=== PATIENT | female | born 1965 | race Caucasian/White ===

== ENCOUNTER 2024-12-06 15:36 | Inpatient (IN) | payer MEDICARE ==
[2024-12-06] MEDS ORDERED: NA CHLORIDE 0.9% 1,000 ML ONE (16:12)
[2024-12-06 18:20] LABS: Absolute Basophils 0.1 K/uL (0-0.5); Absolute Lymphocytes (CBC) 1.3 K/uL (0.7-4.9); Absolute Monocytes 1.8 K/uL (0.1-1.3); Absolute Neutrophil 22.2 K/uL (1.8-8.0); Basophils % 0.2 % (0-1.3); Eosinophils % 0.1 % (0-4.4); Hematocrit 39.5 % (36.0-45.0); Lymphocytes % 5.3 % (15.3-44.8); MCHC 32.9 g/dL (32.0-36.0); MCV 97.3 fL (80-100); MPV 6.9 fL (7.6-11.3); Monocytes % 7.2 % (3.3-12.3); Neutrophils % 87.2 % (41.7-73.7); Platelets 428 thou/uL (152-406); RBC Red Blood Cell Count 4.06 M/uL (3.86-4.86); Red Cell Distribution Width 13.7 % (12.1-15.2)
[2024-12-06 18:38] LABS: Albumin 3.9 g/dL (3.4-5.0); Albumin/Globulin Ratio 0.8 (1.1-1.8); Anion Gap 12.9 mEq/L (5.0-15.0); Bilirubin Total 0.6 mg/dL (0.2-1.0); Globulin 4.7 g/dL (2.3-3.5); Potassium 3.9 mEq/L (3.5-5.1); Protein, Total 8.6 g/dL (6.4-8.2)
--- NOTE | 2024-12-06 19:27 | RAD REPORT ---
EXAM: CT brain without contrast HISTORY: fall COMPARISON: None TECHNIQUE: Multiple contiguous axial images were obtained and a CT of the brain without contrast. Sag ittal and coronal reformats were performed. One or more of the following dose reduction techniques were used: Automated exposure control, adjust ment of the mA and/or kV according to patient size, and/or iterative reconstruction. FINDINGS: No evidence of hydrocephalus, intracranial hemorrhage, or extra-axial fluid collection. The brain is normal in morphology. No evidence of midline shift or areas of brain edema. The calvarium is intact. The visualized paranasal sinuses and mastoid air cells are essentially clear . IMPRESSION: No evidence of acute intracranial abnormality.
--- NOTE | 2024-12-06 19:28 | RAD REPORT ---
EXAMINATION: CT ABDOMEN AND PELVIS WITHOUT CONTRAST CLINICAL INDICATION: Constipation;Abd pain TECHNIQUE: CT abdomen and pelvis was performed, without IV contrast, as per department protocol. Axia l, sagittal and coronal reconstructions were obtained. One or more of the following dose reduction techniques were used: Automated exposure control, adjustment of the mA and kV according to the patien t size, and iterative reconstruction. Unless otherwise specified, incidental findings do not require dedicated imaging follow-up. COMPARISON: No prior exam. FINDINGS: The lack of intravenous contrast limits the sensitivity of this exam for evaluation of solid visceral organs, vascular structures, and retroperitoneum. LOWER CHEST: The visualized lung bases are clear. LIVER:Normal in size and contour. No focal lesion. Grossly unremarkable gallbladder. SPLEEN: Normal size. No focal lesion. PANCREAS: No mass, ductal dilation, or domenico-pancreatic fluid. ADRENALS: Normal; no mass. KIDNEYS AND URETERS: Normal size and contour. No hydronephrosis. URINARY BLADDER: Normal contour. GASTROINTESTINAL TRACT: No evidence of bowel obstruction, significant free fluid, free air or abscess . Scattered colonic diverticulosis. APPENDIX: Normal appendix. LYMPH NODES: No lymphadenopathy. MUSCULOSKELETAL: Mild multilevel degenerative spondylosis of the lumbar spine with vacuum disc degene ration. ADDITIONAL FINDINGS: None. IMPRESSION: No acute or concerning abnormalities in the abdomen or pelvis, with evaluation limited by lack of IV contrast.
--- NOTE | 2024-12-06 19:31 | EDPHYS ---
Physician Documentation [facility] Name: Zayra Youssef Age: 59 yrs Sex: Female : 1965 Arrival Date: 12/06/2024 Time: 15:36 Bed 17 Private MD: ED Physician Harrison Li HPI: 12/06 17:34 This 59 yrs old Female presents to ER via EMS with complaints of Constipation. rn 17:34 The patient presents with abdominal pain. Onset: The symptoms/episode began/occurred 2 rn day(s) ago. The symptoms do not radiate. Associated signs and symptoms: Pertinent positives: constipation, Pertinent negatives: blood in stools, fever. The symptoms are described as crampy. Modifying factors: The symptoms are alleviated by nothing, the symptoms are aggravated by nothing. Severity of pain: At its worst the pain was moderate in the emergency department the pain is unchanged. The patient has experienced similar episodes in the past. Patient and spouse report 2 days of abdominal pain, diffuse, associated with constipation followed by diarrhea. Patient with recurrent episodes of constipation. No blood in stool. Patient reports eating barbecue and then has been having nonstop diarrhea since then.. Historical: - Allergies: 15:54 No Known Allergies; kj2 - PMHx: 15:54 Hypertensive disorder; Diabetes mellitus; Depressive disorder; Anxiety; kj2 - Immunization history:: Adult Immunizations unknown. - Infectious Disease History:: Denies. - Social history:: Smoking status: unknown. - Family history:: not pertinent. - Hospitalizations: : No recent hospitalization is reported. ROS: 17:34 Constitutional: Negative for fever, chills, and weight loss, Neck: Negative for injury, rn pain, and swelling, Cardiovascular: Negative for chest pain, palpitations, and edema, Respiratory: Negative for shortness of breath, cough, wheezing, and pleuritic chest pain, Abdomen/GI: Positive for abdominal pain with diarrhea that is nonbloody MS/Extremity: Negative for injury and deformity, Skin: Negative for injury, rash, and discoloration, Neuro: Negative for headache, weakness, numbness, tingling, and seizure, Exam: 17:34 Constitutional: This is a well developed, well nourished patient who is awake, alert, rn and in no acute distress. Cardiovascular: Regular rate and rhythm. No pulse deficits. Respiratory: No increased work of breathing, no retractions or nasal flaring. Abdomen/GI: Soft, right lower quadrant tenderness on exam 23:15 ECG was reviewed by the Attending Physician. [facility] Vital Signs: 15:58 Weight 117.93 kg; Height 5 ft. 3 in. ; kj2 16:00 BP 97 / 54; Pulse 78; Resp 18; Temp 98.2; Pulse Ox 100% on R/A; kj2 18:35 BP 100 / 56; Pulse 80; Resp 18; Pulse Ox 100% ; kj2 20:30 BP 102 / 58; Pulse 73; Resp 18; Pulse Ox 98% on 2 lpm NC; kj2 21:45 BP 104 / 70; Pulse 74; Resp 20; Pulse Ox 100% ; kj2 15:58 Body Mass Index 46.06 (117.93 kg, 160.02 cm) kj2 MDM: 15:43 Medical Screening Exam initiated rn 18:48 ED course: Creatinine elevated, switch CT to without contrast. rn 19:23 Differential diagnosis: bowel obstruction, Cholelithiasis, diverticulitis, gastritis, maurizio gastroesophageal reflux disease, Mesenteric ischemia or infarction, non-specific abd pain, pancreatitis, Peptic Ulcer Disease, Ureterolithiasis, urinary tract infection. Data reviewed: vital signs, nurses notes, lab test result(s), EKG, radiologic studies, CT scan, plain films. Consideration of Admission/Observation Patient was admitted/placed on observation. Escalation of care including admission/observation considered. I considered the following discharge prescriptions or medication management in the emergency department Medications were administered in the Emergency Department. See MAR. Independent interpretation of the following test(s) in the Emergency Department EKG: See my EKG interpretation above. Test considered but Not performed: Ultrasound NO ABD USG. Historians other than the Patient: PT WELL INFORMED. Care significantly affected by the following chronic conditions: Diabetes, Hypertension, Obesity, ANXIETY, DEPRESSION. Counseling: I had a detailed discussion with the patient and/or guardian regarding the historical points, exam findings, and any diagnostic results supporting the discharge/admit diagnosis, lab results, radiology results, the need for further work-up and treatment in the hospital. 12/06 15:44 Order name: CBC with Diff rn 12/06 15:44 Order name: CMP; Complete Time: 18:42 rn 12/06 15:44 Order name: Lipase; Complete Time: 18:42 rn 12/06 18:49 Order name: Blood Culture Adult (2) rn 12/06 18:49 Order name: Lactate w/ 2H reflex if indic. rn 12/06 18:49 Order name: Protime (+inr) rn 12/06 18:49 Order name: Ptt, Activated rn 12/06 20:09 Order name: Urinalysis w/ reflexes kl 12/06 20:13 Order name: Fecal Leukocyte Stain kl 12/06 20:13 Order name: Ova And Parasites kl 12/06 20:13 Order name: Rotavirus Antigen kl 12/06 20:13 Order name: Stool Culture kl 12/06 20:48 Order name: Manual Differential EDMS 12/06 20:52 Order name: Urinalysis w/ reflexes EDMS 12/06 20:52 Order name: CBC with Automated Diff EDMS 12/06 20:52 Order name: CBC with Automated Diff EDMS 12/06 20:52 Order name: Comprehensive Metabolic Panel EDMS 12/06 20:52 Order name: Comprehensive Metabolic Panel EDMS 12/06 23:50 Order name: C.difficile GDH Ag EDMS 12/07 00:01 Order name: Ghost Lactate-NO COLLECT Timer EDMS 12/06 18:49 Order name: Abdomen EDMS 12/06 19:06 Order name: Head Brain Wo Cont; Complete Time: 19:29 EDMS 12/06 18:49 Order name: EKG; Complete Time: 18:50 rn 12/06 15:44 Order name: IV Saline Lock; Complete Time: 18:13 rn 12/06 15:44 Order name: Labs collected and sent; Complete Time: 18:13 rn 12/06 18:49 Order name: Accucheck rn 12/06 18:49 Order name: Cardiac monitoring rn 12/06 18:49 Order name: EKG - Nurse/Tech rn 12/06 18:49 Order name: IV Saline Lock - Large Bore; Complete Time: 21:44 rn 12/06 18:49 Order name: O2 Per Protocol; Complete Time: 21:44 rn 12/06 18:49 Order name: O2 Sat Monitoring rn 12/06 18:49 Order name: Vital Signs; Complete Time: 21:44 rn EC:15 Rate is 80 beats/min. Rhythm is regular. QRS [place] is Normal. RI interval is normal. QRS maurizio interval is normal. QT interval is normal. No Q waves. T waves are Normal. No ST changes noted. Clinical impression: Normal ECG and No evidence of ischemia. Interpreted by me. Reviewed by me. Administered Medications: 18:13 Drug: NS 0.9% IV 1000 ml IV at 1 bolus Per protocol; to be given as a bolus over 60 kj2 minutes Route: IV; Rate: 1 bolus; Site: right antecubital; 19:00 Drug: NS 0.9% IV 1000 ml IV at 1000 ml once; to be given as a bolus over 60 minutes kj2 Route: IV; Rate: 1000 ml; Site: right antecubital; 22:15 Follow up: IV Status: Completed infusion; IV Intake: 1000ml kj2 22:03 Drug: Piperacillin-Tazobactam IVPB 3.375 grams IVPB once over 60 mins; (mix in NS 100 kj2 mL) Route: IVPB; Infused Over: 60 mins; Site: right antecubital; Disposition Summary: 12/06/24 19:30 Hospitalization Ordered Notes: Hospitalization Status: Inpatient Admission maurizio Provider: Jonn Santiago cha Location: Telemetry/MedSurg (Inpatient) maurizio Condition: Fair maurizio Problem: new maurizio Symptoms: have improved maurizio Bed/Room Type: Standard [facility] Room Assignment: 220(12/06/24 21:22) rv1 Diagnosis - Elevated white blood cell count maurizio - Weakness maurizio - Acute kidney failure, unspecified maurizio - Constipation - Diarrhea(12/06/24 19:31) [facility] Forms: - Medication Reconciliation Form maurizio - SBAR form maurizio - Leadership Thank You Letter maurizio Signatures: Dispatcher [employer] Ebenezer Kelly MD MD cha Nieto, Roman, MD MD rn Villegas, Rebecca rv1 Olivia Bueno RN RN kj2 Corrections: (The following items were deleted from the chart) 18:40 17:34 Patient and spouse report 2 days of abdominal pain, diffuse, associated with rn constipation. Patient with recurrent episodes of constipation. No blood in stool.. rn 18:40 17:34 Constitutional: Negative for fever, chills, and weight loss, Neck: Negative for rn injury, pain, and swelling, Cardiovascular: Negative for chest pain, palpitations, and edema, Respiratory: Negative for shortness of breath, cough, wheezing, and pleuritic chest pain, Abdomen/GI: Positive for abdominal pain with constipation MS/Extremity: Negative for injury and deformity, Skin: Negative for injury, rash, and discoloration, Neuro: Negative for headache, weakness, numbness, tingling, and seizure, rn 18:40 17:34 Constitutional: This is a well developed, well nourished patient who is awake, rn alert, and in no acute distress. Cardiovascular: Regular rate and rhythm. No pulse deficits. Respiratory: No increased work of breathing, no retractions or nasal flaring. Abdomen/GI: Soft, no focal tenderness. rn 18:49 15:44 Abdomen Pelvis W Con+CT.RAD.BRZ ordered. EDMS EDMS 19:31 19:30 Constipation maurizio maurizio 21:22 19:30 maurizio rv1
--- NOTE | 2024-12-06 19:31 | ER ---
Nurse's Notes [facility] Name: Zayra Youssef Age: 59 yrs Sex: Female : 1965 Arrival Date: 12/06/2024 Time: 15:36 Bed 17 Private MD: Diagnosis: Constipation-Diarrhea;Elevated white blood cell count;Weakness;Acute kidney failure, unspecified Presentation: 12/06 15:51 Chief complaint: EMS states: constipation x 2 days. Coronavirus screen: Client denies kj2 travel out of the [place] in the last 14 days. At this time, the client does not indicate any symptoms associated with coronavirus-19. Ebola Screen: No symptoms or risks identified at this time. Initial Sepsis Screen: Does the patient meet any 2 criteria? No. Patient's initial sepsis screen is negative. Does the patient have a suspected source of infection? No. Patient's initial sepsis screen is negative. Risk Assessment: Do you want to hurt yourself or someone else? Patient reports no desire to harm self or others. Onset of symptoms was December 06, 2024. 15:51 Method Of Arrival: [facility] kj2 15:51 Acuity: TESHA 3 kj2 Triage Assessment: 15:55 General: Appears in no apparent distress. Behavior is calm, cooperative. Pain: Denies kj2 pain. Neuro: Level of Consciousness is awake, alert, Oriented to person, place, time, situation. Cardiovascular: Patient's skin is warm and dry. Respiratory: Airway Respiratory effort is even, unlabored. GI: No signs and/or symptoms were reported involving the gastrointestinal system. : No signs and/or symptoms were reported regarding the genitourinary system. Historical: - Allergies: 15:54 No Known Allergies; kj2 - PMHx: 15:54 Hypertensive disorder; Diabetes mellitus; Depressive disorder; Anxiety; kj2 - Immunization history:: Adult Immunizations unknown. - Infectious Disease History:: Denies. - Social history:: Smoking status: unknown. - Family history:: not pertinent. - Hospitalizations: : No recent hospitalization is reported. Screenin:57 [facility] ED Fall Risk Assessment (Adult) History of falling in the last 3 months, kj2 including since admission No falls in past 3 months (0 pts) Confusion or Disorientation No (0 pts) Intoxicated or Sedated No (0 pts) Impaired Gait No (0 pts) Mobility Assist Device Used No (0 pt) Altered Elimination No (0 pt) Score/Fall Risk Level 0 - 2 = Low Risk Maintained a safe environment, Hourly rounding (assess needs \T\ fall precautionary measures) done. Abuse screen: Denies threats or abuse. Denies injuries from another. Nutritional screening: No deficits noted. Tuberculosis screening: No symptoms or risk factors identified. Assessment: 15:59 General: see triage assessment. kj2 17:03 Reassessment: patient on bedside commode for BM x 2. RN explained the importance of UV kj2 placement. Patient request to wait until finished and back in bed for IV. 18:12 Reassessment: Patient appears in no apparent distress at this time. Patient and/or kj2 family updated on plan of care and expected duration. Pain level reassessed. Patient is alert, oriented x 3, equal unlabored respirations, skin warm/dry/pink. 18:35 Reassessment: Patient appears in no apparent distress at this time. Patient and/or kj2 family updated on plan of care and expected duration. Pain level reassessed. Patient is alert, oriented x 3, equal unlabored respirations, skin warm/dry/pink. 19:30 Reassessment: Patient appears in no apparent distress at this time. Patient and/or kj2 family updated on plan of care and expected duration. Pain level reassessed. Patient is alert, oriented x 3, equal unlabored respirations, skin warm/dry/pink. 20:30 Reassessment: Patient appears in no apparent distress at this time. Patient and/or kj2 family updated on plan of care and expected duration. Pain level reassessed. Patient is alert, oriented x 3, equal unlabored respirations, skin warm/dry/pink. 21:30 Reassessment: Patient appears in no apparent distress at this time. Patient and/or kj2 family updated on plan of care and expected duration. Pain level reassessed. Patient is alert, oriented x 3, equal unlabored respirations, skin warm/dry/pink. 22:14 Reassessment: Patient appears in no apparent distress at this time. Patient and/or kj2 family updated on plan of care and expected duration. Pain level reassessed. Patient is alert, oriented x 3, equal unlabored respirations, skin warm/dry/pink. 12/07 00:13 Reassessment: Patient appears in no apparent distress at this time. Patient and/or kj2 family updated on plan of care and expected duration. Pain level reassessed. Patient is alert, oriented x 3, equal unlabored respirations, skin warm/dry/pink. Vital Signs: 12/06 15:58 Weight 117.93 kg; Height 5 ft. 3 in. ; kj2 16:00 BP 97 / 54; Pulse 78; Resp 18; Temp 98.2; Pulse Ox 100% on R/A; kj2 18:35 BP 100 / 56; Pulse 80; Resp 18; Pulse Ox 100% ; kj2 20:30 BP 102 / 58; Pulse 73; Resp 18; Pulse Ox 98% on 2 lpm NC; kj2 21:45 BP 104 / 70; Pulse 74; Resp 20; Pulse Ox 100% ; kj2 15:58 Body Mass Index 46.06 (117.93 kg, 160.02 cm) kj2 ED Course: 15:43 Patient arrived in ED. rn 15:43 Harrison Li MD is Attending Physician. rn 15:50 Olivia Bueno RN is Primary Nurse. kj2 15:53 Triage completed. kj2 15:58 Patient has correct armband on for positive identification. Provided Education on: call kj2 light, fall prevention. 15:59 Assisted to bedside commode. kj2 16:00 Assisted to bedside commode. bowel movement. kj2 16:45 Assisted to bedside commode. bowel movement. kj2 17:12 Radiology exam delayed due to lab results not completed at this time. (BUN/Creatinine) sm9 IV insertion attempt and/or patient not having appropriate IV at this time. 18:12 Inserted saline lock: 20 gauge in right antecubital area, using aseptic technique. kj2 Blood collected. Flushed with 10 mL NS. 19:15 Assisted to bedside commode. bowel movement. kj2 19:18 Abdomen In Process Unspecified. EDMS 19:18 Head Brain Wo Cont In Process Unspecified. EDMS 19:29 Jonn Santiago MD is Hospitalizing Provider. [facility] 22:14 Stool Culture Sent. kj2 22:24 Assisted to bedside commode. bowel movement. kj2 23:55 Urinalysis w/ reflexes Sent. kj2 12/07 00:13 No provider procedures requiring assistance completed. Patient admitted, IV remains in kj2 place. 00:14 Patient need for admit. kj2 Administered Medications: 12/06 18:13 Drug: NS 0.9% IV 1000 ml IV at 1 bolus Per protocol; to be given as a bolus over 60 kj2 minutes Route: IV; Rate: 1 bolus; Site: right antecubital; 19:00 Drug: NS 0.9% IV 1000 ml IV at 1000 ml once; to be given as a bolus over 60 minutes kj2 Route: IV; Rate: 1000 ml; Site: right antecubital; 22:15 Follow up: IV Status: Completed infusion; IV Intake: 1000ml kj2 22:03 Drug: Piperacillin-Tazobactam IVPB 3.375 grams IVPB once over 60 mins; (mix in NS 100 kj2 mL) Route: IVPB; Infused Over: 60 mins; Site: right antecubital; Medication: 15:58 VIS not applicable for this client. kj2 Intake: 22:15 IV: 1000ml; Total: 1000ml. kj2 Outcome: 19:30 Decision to Hospitalize by Provider. maurizio 12/07 00:14 Admitted to Med/surg accompanied by tech, via wheelchair, room 220, kj2 Condition: stable Instructed on the need for admit, 00:15 Patient left the ED. kj2 Signatures: Dispatcher [employer] EDEbenezer Bonilla MD MD cha Nieto, Roman, MD MD rn McGilbery, Sarah [facility] Olivia Bueno RN RN kj2 Corrections: (The following items were deleted from the chart) 12/06 17:25 17:13 Radiology exam delayed due to lab results not completed at this time. sm9 (BUN/Creatinine) sm9
[2024-12-06 20:47] LABS: Differential Total Cells Count 100; Lymphocytes 7 % (15-42); Segmented Neutrophils 92 % (40-80)
[2024-12-06] MEDS ORDERED: ONDANSETRON 4 MG/2 ML VIAL IV PRN (20:47)
[2024-12-06 20:48] LABS: Blood Morphology Comment NOT SEEN (NOT SEEN); Platelet Estimate INCR
--- NOTE | 2024-12-06 20:51 | P.HP ---
Certification for Inpatient Patient admitted to: Inpatient With expected LOS: >2 Midnights Practitioner: I am a practitioner with admitting privileges, knowledge of patient current condition, hospital course, and medical plan of care. Services: Services provided to patient in accordance with Admission requirements found in Title 42 Section 412.3 of the Code of Federal Regulations Patient History Date of Service: 12/06/24 Reason for admission: Abdominal Pain History of Present Illness: 59 yrs old Female with past medical history of diabetes, hypertension, hyperlipidemia, depression, anxiety, who was brought to ER with abdominal pain. Abdominal pain is diffuse. Nonradiating., Pain is dull aching associate with alternating constipation and diarrhea. No fever or chills. Denies any melena Denies any dysuria. No fever or chills. No sick contacts. Patient was assessed in the ER and was noted to have acute kidney injury and elevated lactic acid level along with leukocytosis and was admitted for further management Allergies No Known Allergies Allergy (Verified 05/18/24 10:36) Home medications list reviewed: Yes Home Medications: Acetaminophen [Tylenol Extra Strength] 2 tab PO TID 01/17/23 Aripiprazole [Abilify] 2 mg PO DAILY 01/17/23 Tirzepatide [Mounjaro] 2.5 mg SQ EVERY 7TH DAY 01/17/23 Venlafaxine HCl [Effexor XR] 150 mg PO DAILY 01/17/23 - Past Medical/Surgical History Diabetic: No Past Medical History: Reviewed- Non-Contributory -: Depression -: ALTAGRACIA -: DVT -: morbid obese -: RA vs OA Past Surgical History: Reviewed- Non-Contributory - Family History Family History: Reviewed- Non-Contributory - Family History Father Notes: healthy - Social History Smoking Status: Never smoker Alcohol use: Yes CD- Drugs: No Caffeine use: Yes Review of Systems 10-point ROS is otherwise unremarkable Physical Examination - Vital Signs Temperature: 98.2 F Blood Pressure: 142/78 Pulse: 82 Respirations: 18 Pulse Ox (%): 94 - Physical Exam General: Alert, Oriented x3, Cooperative, Obese HEENT: Atraumatic, Normocephalic Neck: Supple Respiratory: Clear to auscultation bilaterally, Normal air movement Cardiovascular: Regular rate/rhythm, Normal S1 S2 Capillary refill: <2 Seconds Gastrointestinal: W/out hepatosplenomegaly, Distended, Tenderness Musculoskeletal: No clubbing Integumentary: No rashes Neurological: Normal speech, Normal strength at 5/5 x4 extr, Cranial nerves 3-12 intact, Normal reflexes 2+ Lymphatics: No axilla or inguinal lymphadenopathy - Studies Laboratory Data (last 24 hrs) 12/06/24 12/06/24 18:05 18:05 WBC 25.50 H Hgb 13.0 Hct 39.5 Plt Count 428 H Sodium 138 Potassium 3.9 BUN 49 H Creatinine 3.32 H Glucose 158 H Total Bilirubin 0.6 AST 17 ALT 20 Alkaline Phosphatase 150 H Lipase 33 Assessment and Plan - Plan Intractable abdominal pain Acute kidney injury Leukocytosis Lactic acidosis Hypertension Arthritis Morbid obesity Plan Nonspecific abdominal pain Started on IV antibiotic CT negative for any acute changes Monitor closely on telemetry Aggressive hydration Monitor CBC in a.m. UA pending Hypertension Antihypertensives titrated Continue home medications and titrate as needed Hyperlipidemia Continue statin SEBASTIAN Monitor renal parameters Electrolytes monitor and replace accordingly Nephrology consulted Morbid obesity Advise lifestyle modification GI/DVT prophylaxis Advanced directive full code Discharge Plan: Home Plan to discharge in: 48 Hours - Advance Directives Does patient have a Living Will: No Does patient have a Durable POA for Healthcare: No - Code Status/Comfort Care Code Status: Full Code Time Spent Managing Pts Care (In Minutes): 48
[2024-12-06] MEDS ORDERED: PIPERACIL/TAZO 3.375 GM VIAL IV ONE (21:49)
[2024-12-06] MEDS ORDERED: NA CHLORIDE 0.9% 100 ML ONE (21:51)
[2024-12-06 21:54] LABS: PT Prothrombin Time 12.8 SECONDS (9.4-12.5); PTT, Activated Partial Thromb 31.4 SECONDS (24.3-36.9); Protime INR 1.22
[2024-12-06 23:50] LABS: C.diff Antigen/Toxin Ag neg : Tox neg (NEG : NEG); CDIFF INTERNAL NEG CONTROL White Background (WHITE BKGD); STOOL CONSISTENCY Liquid/Semi-Solid
[2024-12-07] LABS: Calcium Oxalate Crystals- Ur Few /HPF (None Seen); Renal Epithelial <5 /HPF (None Seen); Specific Gravity 1.021 (1.005-1.030); Sqamous Epithelial <5 /HPF (None Seen); Urine Bacteria >50 /HPF (<20); Urine Bilirubin NEGATIVE (Negative); Urine Blood 1+ (Negative); Urine Clarity Extremely Turbid (Clear); Urine Color Yellow (Yellow); Urine Culture Reflex Order NOT NEEDED; Urine Glucose NEGATIVE (Negative); Urine Ketones NEGATIVE (Negative); Urine Microscopic Reflex YN ORDER UMIC; Urine Mucus Slight /HPF (None Seen); Urine Nitrite NEGATIVE (Negative); Urine Protein 1+ (Negative); Urine Urobilinogen Normal (Normal); Urine WBC <5 /HPF (<5); Urine WBC Clump Rare /HPF (None Seen); Urine Yeast (Budding) Trace /HPF (None Seen)
[2024-12-07 00:38] VITALS: BMI 42.1
[2024-12-07] MEDS: NA CHLORIDE 0.9% 1,000 ML IV SCH (00:51)
[2024-12-07 05:24] LABS: Absolute Basophils 0.1 K/uL (0-0.5); Absolute Lymphocytes (CBC) 1.2 K/uL (0.7-4.9); Absolute Monocytes 2.3 K/uL (0.1-1.3); Absolute Neutrophil 20.5 K/uL (1.8-8.0); Basophils % 0.4 % (0-1.3); Hematocrit 38.9 % (36.0-45.0); Hemoglobin 12.7 g/dL (12.0-15.0); MCH 31.6 pg (27.0-35.0); MCHC 32.7 g/dL (32.0-36.0); MCV 96.5 fL (80-100); Monocytes % 9.4 % (3.3-12.3); Neutrophils % 85.2 % (41.7-73.7); Platelets 430 thou/uL (152-406); RBC Red Blood Cell Count 4.03 M/uL (3.86-4.86); Red Cell Distribution Width 13.7 % (12.1-15.2)
[2024-12-07 05:54] LABS: Albumin 3.4 g/dL (3.4-5.0); Albumin/Globulin Ratio 0.7 (1.1-1.8); Anion Gap 10.8 mEq/L (5.0-15.0); Bilirubin Total 0.7 mg/dL (0.2-1.0); Globulin 4.7 g/dL (2.3-3.5); Potassium 3.8 mEq/L (3.5-5.1); Protein, Total 8.1 g/dL (6.4-8.2)
--- NOTE | 2024-12-07 07:49 | RAD REPORT ---
EXAMINATION: US RENAL ULTRASOUND CLINICAL INDICATION: Kidney Function TECHNIQUE: Real-time ultrasonography of the abdomen was performed. COMPARISON: No prior exam. FINDINGS: RIGHT KIDNEY: Right renal length measurement: 11.0 x 5.6 x 4.7 cm. Normal in echogenicity and size. N o calculus, solid mass or hydronephrosis. LEFT KIDNEY: Left renal length measurement: 9.7 x 5.7 x 4.9 cm. Normal in echogenicity and size. No c alculus, solid mass or hydronephrosis. URINARY BLADDER: Incompletely distended without gross abnormality detected. ADDITIONAL FINDINGS: None. IMPRESSION: Unremarkable renal ultrasound.
[2024-12-07] MEDS: FLU (Fluarix Triv) TS24-25(6MOS UP)/PF 45 MCG/0.5 ML Syringe IM ONE (08:00)
[2024-12-07] MEDS: ACETAMINOPHEN 325 MG TABLET PO PRN (08:44)
[2024-12-07] MEDS: ENOXAPARIN 30 MG/0.3 ML SQ SCH (08:44)
[2024-12-07] MEDS: PIPER TAZO 3.375 GM in NA CHLORIDE 0.9% 100 ML IV SCH (11:43)
--- NOTE | 2024-12-07 14:08 | P.PN ---
Subjective Date of Service: 12/07/24 Chief Complaint: Abdominal Pain Patient reports multiple episodes of diarrhea today. Also reports abdominal pain. Physical Examination - Vital Signs Temperature: 97.3 F Blood Pressure: 111/60 Pulse: 90 Respirations: 17 Pulse Ox (%): 99 - Studies Laboratory Data (last 24 hrs) 12/06/24 12/06/24 18:05 18:05 WBC 25.50 H Hgb 13.0 Hct 39.5 Plt Count 428 H Sodium 138 Potassium 3.9 BUN 49 H Creatinine 3.32 H Glucose 158 H Total Bilirubin 0.6 AST 17 ALT 20 Alkaline Phosphatase 150 H Lipase 33 Assessment And Plan - Plan Physical examination General: Alert and oriented x3, NAD, HEENT: Conjunctiva not pale, anicteric sclera Neck: Supple, no elevated JVD Heart: Heart sounds 1 and 2 normal, regular rhythm, normal rate, no pedal edema Lungs: Clear to auscultation bilaterally, adequate breath sounds bilaterally, no rhonchi or crackles. Abdomen: Soft, obese, nondistended, nontender, normal bowel sounds. Extremities: No tenderness, no deformity Skin: Normal skin turgor, no rash, no nodules or ulcers. Neuro: No focal motor deficit. Normal speech. Psychiatry: Normal mood, no agitation. Diagnosis Intractable abdominal pain Acute kidney injury Leukocytosis Lactic acidosis Hypertension Arthritis Morbid obesity Plan Nonspecific abdominal pain. Associated leukocytosis CT negative for any acute changes Continue IV antibiotic IV hydration Stool for WBC is negative making infectious enterocolitis unlikely. Monitor CBC in a.m. SEBASTIAN Improving with IV hydration Nephrology consulted. Hypertension Hold lisinopril given borderline low blood pressure Morbid obesity Weight loss by diet and exercise advised. DVT prophylaxis: Lovenox Advanced directive: full code
[2024-12-07 16:54] LABS: Hematocrit 36.6 % (36.0-45.0); Hemoglobin 12.5 g/dL (12.0-15.0)
--- NOTE | 2024-12-08 02:39 | CON ---
Date of Consultation: 12/07/2024 Chief Complaint: Acute kidney injury. History Of Present Illness: The patient is a 59-year-old woman with past medical history of diabetes mellitus, hypertension, hyperlipidemia, depression and anxiety. She was brought to the emergency ro om because of abdominal pain. The patient described pain as diffuse, non nonradiating, associated wi th constipation and diarrhea. Denies fever, chills, melena, hematemesis, dysuria, hematuria. Denies sick contact. The patient was assessed in the emergency room, where she was found to have elevated BUN and creatinine, elevated lactic acid along with leukocytosis. She was admitted for acute kidney injury. Nephrology consultation was requested for acute kidney injury. The patient has nonoliguric urine output and she is tolerating IV fluids. Home Medications: Acetaminophen, Abilify, Mounjaro, Effexor. She denies nonsteroidal anti-inflammat ory medication. Past Medical History: Depression, ALTAGRACIA, DVT, morbid obesity, anxiety, rheumatoid arthritis versus ost eoarthritis. Family History: No medical problems. Social History: Denies tobacco, alcohol. Denies drugs. Physical Examination: General: The patient is awake, alert, follows commands. Eyes: Anicteric sclerae. EOMI. Ears, Nose, and Throat: Oral mucosa moist. No pallor. Neck: Supple. No bruits. Lungs: Clear to auscultation bilaterally. Heart: S1, S2. No pericardial friction. Abdomen: Soft, benign, nontender. No rebound. No guarding. Extremities: No edema. Laboratory Data: Sodium 138, potassium 3.9, BUN 49, creatinine 3.37, glucose 158, total bilirubin 0. 6. WBC 25.5, hemoglobin 13, hematocrit 39.5, platelet count 428,000. AST 17, ALT 20, AP 150, lipase 33. Impression And Plan: The patient presented with intractable abdominal pain, acute kidney injury, kiara kocytosis. She was found to have lactic acidosis, hypertension, and she has arthritis and morbid obe sity. The patient was started on IV antibiotics, and workup is pending to rule out bowel obstruction . Patient had a CT scan done and it showed no acute changes. The patient developed acute kidney inj ury. Plan is to rule out rhabdomyolysis, to check a renal ultrasound and rule out obstructive uropat hy. Urinalysis was ordered to evaluate for possible active urinary sediment. Continue to monitor re nal panel and adjust IV fluids. 1. Hypertension. Hold angiotensin receptor radha. Avoid nonsteroidal anti-inflammatory medication . Continue antihypertensive treatment. 2. Leukocytosis sepsis. Continue antibiotics. Awaiting cultures. 3. Acute kidney injury on advanced chronic kidney disease. Monitor renal panel and check renal ultra sound to assess kidney size and echotexture and rule out obstructive uropathy. EB/MODL Voice ID: [id number] Report ID: [id number]
[2024-12-08 05:42] LABS: Absolute Eosinophils 0.1 K/uL (0-0.5); Absolute Lymphocytes (CBC) 2.2 K/uL (0.7-4.9); Absolute Monocytes 2.2 K/uL (0.1-1.3); Absolute Neutrophil 19.1 K/uL (1.8-8.0); Basophils % 0.2 % (0-1.3); Eosinophils % 0.3 % (0-4.4); Hematocrit 35.5 % (36.0-45.0); Hemoglobin 11.9 g/dL (12.0-15.0); Lymphocytes % 9.5 % (15.3-44.8); MCH 32.1 pg (27.0-35.0); MCHC 33.5 g/dL (32.0-36.0); MCV 95.7 fL (80-100); MPV 7.4 fL (7.6-11.3); Monocytes % 9.2 % (3.3-12.3); Neutrophils % 80.8 % (41.7-73.7); Platelets 347 thou/uL (152-406); RBC Red Blood Cell Count 3.71 M/uL (3.86-4.86); Red Cell Distribution Width 13.6 % (12.1-15.2)
[2024-12-08 05:53] LABS: Anion Gap 10.5 mEq/L (5.0-15.0); Potassium 3.5 mEq/L (3.5-5.1)
--- NOTE | 2024-12-08 07:23 | RAD REPORT ---
EXAMINATION: Transvaginal Study Probe CLINICAL INDICATION: Pelvic pain. Vaginal bleeding TECHNIQUE: Real-time ultrasonography of the pelvis was performed transvaginally. Color and spectral D oppler evaluation of the ovaries was performed. COMPARISON: No prior exam. FINDINGS: The uterus measures 8 x 4 x 6 cm. Small nabothian cysts within the cervix. A fibroid is not seen. The endometrial stripe measures 8 x 4 x 6 cm The ovaries not seen secondary to overlying bowel gas. Right and left adnexa unremarkable No significant free fluid IMPRESSION: Mild thickening of the endometrium.. In a postmenopausal possible patient this could represent polyp, hyperplasia or neoplasm
[2024-12-08] MEDS: POTASSIUM CL SA 10 MEQ TAB PO ONE (07:34)
--- NOTE | 2024-12-08 09:39 | P.PN ---
Date of Service: 12/08/24 Subjective: feels some improvement overall compared to yesterday reports bleeding has improved - "thinning out"; reports sees it when urinating and possibly vaginal, none with BMs abdominal pain relieved with passing gas no BM since admission - was having diarrhea prior to admission tolerating liquids without issues ROS: 10 point ROS as noted above, otherwise negative Physical Exam: GEN: Alert, oriented, NAD CV: Regular rate and rhythm, no edema Pulm: Nonlabored respirations on room air, clear bilaterally ABD: soft, moderate lower abdominal tenderness, slightly more on LLQ compared to RLQ, nondistended Neuro: Normal speech, normal affect Problem List: Intractable abdominal pain Hematuria, improving Lactic acidosis Leukocytosis SEBASTIAN Hypertension Hyperlipidemia Intractable abdominal pain Hematuria, improving Lactic acidosis Leukocytosis on admission, presents with diffuse abdominal pain. Denies fever/chills/Dysuria. No Melena. CT abdomen (12/06): no acute findings. transvaginal u/s (12/07): Mild thickening of the Endometrium. done due to concern of vaginal bleeding > hematuria pt reports is post-menopausal, and this is new for her had pelvic floor prolapse and had surgery 12/[address] Orellana. Has not followed up recently. continue empiric zosyn (12/07-) antiemetics, pain control Tolerating diet without issues. Advance as tolerated. Hematuria improving. Abdominal pain less severe 12/08. SEBASTIAN improving secondary to prerenal; improved with IVF continue to monitor renal function renal u/s (12/07): unremarkable continue IV fluids Hypertension Hyperlipidemia confirm home meds, restart as appropriate VTE: hold Lovenox given bleed Code: Full Dispo: Home, ~1-2 days pending pain improves, afebrile > 24 hours, leukocytosis improves Time Spent Managing Pts Care (In Minutes): 55
--- NOTE | 2024-12-08 12:45 | EKG ---
Test Date: 2024-12-06 Test Time: 22:59:48 Cell Operator: PATRIA MEASUREMENT RESULTS: Intervals: Rate: 80 MT: 148 QRSD: 86 QT: 382 QTc: 440 Waterproof: P: 59 MT: 148 QRS: -7 T: 40 INTERPRETIVE STATEMENTS: Normal sinus rhythm Normal ECG No previous ECG available for comparison Electronically Signed On 12-08-24 12:42:08 SIDE SEAM ENVELOPE MACHINE OPERATOR by Goran Allen
[2024-12-09 05:22] LABS: Absolute Eosinophils 0.1 K/uL (0-0.5); Absolute Lymphocytes (CBC) 2.3 K/uL (0.7-4.9); Absolute Monocytes 1.3 K/uL (0.1-1.3); Basophils % 0.2 % (0-1.3); Eosinophils % 0.7 % (0-4.4); Hematocrit 33.8 % (36.0-45.0); Hemoglobin 11.1 g/dL (12.0-15.0); Lymphocytes % 11.5 % (15.3-44.8); MCH 31.6 pg (27.0-35.0); MCHC 32.7 g/dL (32.0-36.0); MCV 96.5 fL (80-100); MPV 7.5 fL (7.6-11.3); Monocytes % 6.7 % (3.3-12.3); Neutrophils % 80.9 % (41.7-73.7); Platelets 338 thou/uL (152-406); Red Cell Distribution Width 13.2 % (12.1-15.2)
[2024-12-09 05:41] LABS: Anion Gap 8.7 mEq/L (5.0-15.0); Potassium 3.7 mEq/L (3.5-5.1)
[2024-12-09] MEDS: VENLAFAXINE HCL XR 75 MG CAP PO SCH (07:43)
[2024-12-09] MEDS: TOPIRAMATE 100 MG TAB PO SCH (07:43)
[2024-12-09] MEDS: HOME MED 1 EA UNK (Aripiprazole [Abilify] 2 MG Tablet) PO SCH (07:48)
[2024-12-09] MEDS ORDERED: ENOXAPARIN 40 MG/0.4 ML SQ SCH (09:00)
--- NOTE | 2024-12-09 09:12 | P.PN ---
Date of Service: 12/09/24 Subjective: now reporting bleeding from her "backside" not vaginal or urine - very minimal yesterday, only when wipes posteriorly - slight tinged on tissue Thinks its coming from her rectum. yesterday reported no bleeding from rectum, no blood with BMs tolerating diet afebrile feels bleeding is slowing down having some mild cramps in lower abdomen ROS: 10 point ROS as noted above, otherwise negative Physical Exam: GEN: Alert, oriented, NAD CV: Regular rate and rhythm, no edema Pulm: Nonlabored respirations on room air, clear bilaterally ABD: soft, mild lower abdominal tenderness, slightly LLQ > RLQ, nondistended Neuro: Normal speech, normal affect Problem List: Intractable abdominal pain Microscopic hematuria Lactic acidosis, resolved Leukocytosis, improving SEBASTIAN, resolved Hypertension Hyperlipidemia Intractable abdominal pain Microscopic hematuria Lactic acidosis, resolved Leukocytosis, improving on admission, presents with diffuse abdominal pain. Denies fever/chills/Dysuria. No Melena. CT abdomen (12/06): no acute findings. transvaginal u/s (12/07): Mild thickening of the Endometrium. done due to concern of vaginal bleeding > hematuria. pt reports is post- menopausal, and this is new for her had pelvic floor prolapse and had surgery 12/[address] Orellana. Has not followed up recently. 12/09 Patient now reporting bleeding from her "backside." Denies Hematuria/Vaginal bleeding. When asked yesterday if she had any recent bloody stool, she stated no continue empiric zosyn (12/07-) antiemetics, pain control Diet as tolerated. unclear etiology of leukocytosis and elevated CRP she reports symptoms much improved, just mild abd cramps occasionally SEBASTIAN, resolved resolved secondary to prerenal; improved with IVF continue to monitor renal function renal u/s (12/07): unremarkable DC IVF (12/09) Hypertension Hyperlipidemia confirm home meds, restart as appropriate VTE: hold Lovenox given bleed Code: Full Dispo: Home, ~1-2 days pending pain improves, afebrile > 24 hours, leukocytosis improves Time Spent Managing Pts Care (In Minutes): 55
[2024-12-09] MEDS: POTASSIUM CL SA 10 MEQ TAB PO ONE (12:06)
--- NOTE | 2024-12-09 16:24 | PN ---
Date of Progress Note: 12/09/2024 Subjective: The patient was admitted with acute kidney injury and GI loss. Patient after hydration, kidney function has been improved, resolved, normalized. Objective: Vital Signs: Blood pressure 105/53, pulse of 80. Chest: Clear to auscultation. Heart: S1, S2. Regular. Abdomen: Soft, nontender. Extremities: No edema. Neurologic: Alert. No focality. Laboratory Data: Hemoglobin 11.2. WBC 19.8, trending down. Sodium 137, potassium 3.7, bicarb 24, B UN 12, creatinine 0.7, calcium 8. Current Medications: The patient is on include Zosyn, Tylenol, Zofran, KCl. Assessment And Plan: 1. Acute kidney injury secondary to prerenal, recovered, resolved. Keep holding IV fluid. 2. Hypokalemia. We will supplement. 3. Urosepsis. Continue current antibiotic. Follow up with Primary. Culture, so far, negative but p ersistent leukocytosis, even though trending down. 4. Hypokalemia. We will supplement. WANDA/EARNEST Voice ID: [id number] Report ID: [id number]
[2024-12-09 20:35] VITALS: O2SAT 96
[2024-12-10 04:36] LABS: Absolute Eosinophils 0.2 K/uL (0-0.5); Absolute Lymphocytes (CBC) 2.5 K/uL (0.7-4.9); Absolute Monocytes 1.2 K/uL (0.1-1.3); Absolute Neutrophil 12.5 K/uL (1.8-8.0); Basophils % 0.3 % (0-1.3); Eosinophils % 1.4 % (0-4.4); Hematocrit 34.7 % (36.0-45.0); Hemoglobin 11.5 g/dL (12.0-15.0); Lymphocytes % 15.3 % (15.3-44.8); MCH 31.9 pg (27.0-35.0); MCHC 33.2 g/dL (32.0-36.0); MCV 96.1 fL (80-100); MPV 7.4 fL (7.6-11.3); Monocytes % 7.2 % (3.3-12.3); Neutrophils % 75.8 % (41.7-73.7); Platelets 365 thou/uL (152-406); RBC Red Blood Cell Count 3.61 M/uL (3.86-4.86); Red Cell Distribution Width 13.2 % (12.1-15.2)
[2024-12-10 05:06] LABS: Albumin 2.5 g/dL (3.4-5.0); Albumin/Globulin Ratio 0.6 (1.1-1.8); Anion Gap 8.9 mEq/L (5.0-15.0); Bilirubin Total 0.4 mg/dL (0.2-1.0); Globulin 4.5 g/dL (2.3-3.5); Potassium 3.9 mEq/L (3.5-5.1)
[2024-12-10 08:37] VITALS: BP 108/72; TEMP 98.3
[2024-12-10] MEDS: POTASSIUM CL SA 10 MEQ TAB PO ONE (09:33)
--- NOTE | 2024-12-10 09:58 | P.DS ---
Admission Date: 12/06/24 Discharge Date: 12/10/24 Disposition: ROUTINE DISCHARGE Discharge Condition: GOOD Reason for Admission: Abdominal Pain Consultations: Nephrology - DR. Chairez, Dr. Hassan-Hannah OBGYN - Dr. Orellana Brief History of Present Illness: 59 yo F, PMH: diabetes, hypertension, hyperlipidemia, depression, anxiety, Patient was brought to ER with abdominal pain. Abdominal pain is diffuse. Nonradiating., Pain is dull aching associate with alternating constipation and diarrhea. No fever or chills. Denies any melena Denies any dysuria. No fever or chills. No sick contacts.Patient was assessed in the ER and was noted to have acute kidney injury and elevated lactic acid level along with leukocytosis and was admitted for further management Hospital Course: Problem List: Intractable abdominal pain Microscopic hematuria Lactic acidosis, resolved Leukocytosis, improving SEBASTIAN, resolved Hypertension Hyperlipidemia Physician discharge instructions: Patient presented with diffuse intractable abdominal pain associated with intermittent constipation/diarrhea. Unclear exact etiology. CT and stool studies were negative. Shortly after admission, she reported bleeding when going to the bathroom. Prior to my assessment she there was documentation/concern for vaginal bleeding and a transvaginal ultrasound was done. Her bleeding improved/resolved and I was unable to visually see where the bleeding was actually coming from. Initialy denied any blood from rectum / with bowel movements, and then 2/ reported she believes it was coming from her "back side" when she wiped had minimal on toilet paper. CT abdomen was negative for any acute findings. Transvaginal ultrasound noted mild thickening on the endometrium, otherwise negative. She was started on empiric zosyn on admission to cover possible bacterial infection and had improvement of her symptoms. Given her elevated leukocytosis and inflammatory markers, advised patient complete 10 day antibiotic course. Patient was feeling better, bleeding resolved, afebrile > 24 hours, leukocytosis improving, and was deemed stable for discharge. JOHN Ramirez was consulted and recommended following up in office for further evaluation/management in next 2-4 weeks. Patient's abdominal pain improved, tolerated diet for >2 days prior to discharge. She was monitored due to the significant elevation of her white blood cells and CRP, which improved as well. On day of discharge, she reported feeling well and wanting to go home. Discussed inflammatory markers are not back to normal, but showing consistent improvement each day, along with her feeling well for >2 days now. Recommended to follow up with PCP within 1 week, to reheck blood work. She was also noted to have an SEBASTIAN on admission with serum creatinine of 3.32. SEBASTIAN secondary to dehydration; quickly improved with IV hydration. Nephrology was consulted and recommending stopping Lisinopril. Renal ultrasound was unremarkable. Creatinine on day of discharge: 0.65 Check blood pressure around the same time each day. Keep daily log of blood pressure readings to take to follow up appointments in case further adjustments of medications are needed. Follow up with Nephrology in 2-4 weeks for further management. Labwork on admission vs discharge Leukocytosis 25.5 (12/06)-> 16.5 CRP 181 (12/09)-> 116 Medications: Stop Lisinopril avoid NSAIDs augmentin x 5 days Follow up: PCP 3-5 days OBGYN 1-2 weeks Nephrology in 2-4 weeks Please call to schedule / confirm appointments Physical Exam: GEN: Alert, oriented, NAD CV: Regular rate and rhythm, no edema Pulm: Nonlabored respirations on room air, clear bilaterally ABD: soft, mild lower abdominal tenderness, slightly LLQ > RLQ, nondistended Neuro: Normal speech, normal affect Vital Signs/Physical Exam: Temp Pulse Resp BP Pulse Ox 98.3 F 80 16 108/72 96 12/10/24 08:00 12/10/24 08:00 12/10/24 08:00 12/10/24 08:00 12/10/24 08:00 Laboratory Data at Discharge: WBC 16.50 thou/uL (4.3-10.9) H 12/10/24 04:00 Hgb 11.5 g/dL (12.0-15.0) L 12/10/24 04:00 Hct 34.7 % (36.0-45.0) L 12/10/24 04:00 Plt Count 365 thou/uL (152-406) 12/10/24 04:00 PT 12.8 SECONDS (9.4-12.5) H 12/06/24 21:25 INR 1.22 12/06/24 21:25 APTT 31.4 SECONDS (24.3-36.9) 12/06/24 21:25 Sodium 137 mEq/L (136-145) 12/10/24 04:00 Potassium 3.9 mEq/L (3.5-5.1) 12/10/24 04:00 BUN 12 mg/dL (7-18) 12/10/24 04:00 Creatinine 0.65 mg/dL (0.55-1.02) 12/10/24 04:00 Glucose 85 mg/dL (74-106) 12/10/24 04:00 Uric Acid Cancelled 12/07/24 Unknown Magnesium 2.0 mg/dL (1.6-2.4) 12/10/24 04:00 Total Bilirubin 0.4 mg/dL (0.2-1.0) 12/10/24 04:00 AST 12 U/L (15-37) L 12/10/24 04:00 ALT 20 U/L (13-56) 12/10/24 04:00 Alkaline Phosphatase 93 U/L (45-117) 12/10/24 04:00 Lipase 33 U/L (13-75) 12/06/24 18:05 Home Medications: Acetaminophen [Tylenol Extra Strength] 2 tab PO PRN PRN 01/17/23 Aripiprazole [Abilify] 2 mg PO DAILY 01/17/23 Venlafaxine HCl [Effexor XR] 150 mg PO DAILY 01/17/23 Alendronate Sodium 35 mg PO EVERY 7TH DAY 12/07/24 Gabapentin 300 mg PO PRN PRN 12/07/24 Metformin HCl [Glucophage*] 500 mg PO BID 12/07/24 Phentermine HCl [Adipex-P] 37.5 mg PO DAILY 12/07/24 Topiramate [Topamax*] 100 mg PO DAILY 12/07/24 Amox/Clavulanate [Augmentin 875-125 Tab] 1 tab PO BID 5 Days #10 tab 12/10/24 New Medications: Amox/Clavulanate [Augmentin 875-125 Tab] 1 tab PO BID 5 Days #10 tab Physician Discharge Instructions: Physician discharge instructions: Patient presented with diffuse intractable abdominal pain associated with intermittent constipation/diarrhea. Unclear exact etiology. CT and stool studies were negative. Shortly after admission, she reported bleeding when going to the bathroom. Prior to my assessment she there was documentation/concern for vaginal bleeding and a transvaginal ultrasound was done. Her bleeding improved/resolved and I was unable to visually see where the bleeding was actually coming from. Initialy denied any blood from rectum / with bowel movements, and then 2/ reported she believes it was coming from her "back side" when she wiped had minimal on toilet paper. CT abdomen was negative for any acute findings. Transvaginal ultrasound noted mild thickening on the endometrium, otherwise negative. She was started on empiric zosyn on admission to cover possible bacterial infection and had improvement of her symptoms. Given her elevated leukocytosis and inflammatory markers, advised patient complete 10 day antibiotic course. Patient was feeling better, bleeding resolved, afebrile > 24 hours, leukocytosis improving, and was deemed stable for discharge. JOHN Ramirez was consulted and recommended following up in office for further evaluation/management in next 2-4 weeks. Patient's abdominal pain improved, tolerated diet for >2 days prior to discharge. She was monitored due to the significant elevation of her white blood cells and CRP, which improved as well. On day of discharge, she reported feeling well and wanting to go home. Discussed inflammatory markers are not back to normal, but showing consistent improvement each day, along with her feeling well for >2 days now. Recommended to follow up with PCP within 1 week, to reheck blood work. She was also noted to have an SEBASTIAN on admission with serum creatinine of 3.32. SEBASTIAN secondary to dehydration; quickly improved with IV hydration. Nephrology was consulted and recommending stopping Lisinopril. Renal ultrasound was unremarkable. Creatinine on day of discharge: 0.65 Check blood pressure around the same time each day. Keep daily log of blood pressure readings to take to follow up appointments in case further adjustments of medications are needed. Follow up with Nephrology in 2-4 weeks for further management. Labwork on admission vs discharge Leukocytosis 25.5 (2)-> 16.5 CRP 181 (12/09)-> 116 Medications: Stop Lisinopril avoid NSAIDs augmentin x 5 days Follow up: PCP 3-5 days OBGYN 1-2 weeks Nephrology in 2-4 weeks Please call to schedule / confirm appointments Followup: Gina Chairez MD [ACTIVE - CAN ADMIT] - 1-2 Weeks Kylie Jimenez MD [Primary Care Provider] - 1-2 Weeks Time spent managing pt's care (in minutes): 45
[2024-12-10] MEDS: AMOX/K CLAV 875 MG TAB PO ONE (10:12)
--- NOTE | 2024-12-10 12:40 | PN ---
Date of Progress Note: 12/10/2024 Subjective: The patient was admitted to the hospital with acute kidney injury and leukocytosis with severe urosepsis. The patient after hydration kidney function normalized. Objective: Vital Signs: Blood pressure 108/72, pulse of 80, afebrile. Chest: Clear to auscultation. Heart: S1, S2. Regular. Abdomen: Soft, nontender. Extremities: No edema. Neurologic: Alert. No focality. Laboratory Data: WBC 16.5, hemoglobin 11.5, sodium 137, potassium 3.9, bicarb 24, BUN 12, creatinine 0.6, calcium 8.2. Current Medications: The patient is on include amoxicillin, Zosyn, Tylenol, venlafaxine, Zofran, KCl . Assessment And Plan: 1. Acute kidney injury secondary to prerenal, recovered, resolved. 2. Hypokalemia, status post supplement, resolved. 3. Urosepsis. Leukocytosis, improving. Continue current antibiotic. Follow up with the Primary. The patient cleared from the Renal standpoint for discharge planning. DANNIE Voice ID: [id number] Report ID: [id number]
--- NOTE | 2024-12-14 16:58 | P.CNS ---
Date of Consult: 12/08/24 Requesting Physician: Kaushik Li Chief Complaint: Abdominal Pain History of Present Illness: Presented for abdominal pain Pt reporting bleeding, unsure if vaginal or rectal Imaging done shows slightly thickened endo lining endo stripe 8mm on TVUS, verbal from Sen Pagan MD requesting TVUS be amended to reflect this information, initially read Aron Quintana MD Allergies No Known Allergies Allergy (Verified 05/18/24 10:36) Home Medications: Acetaminophen [Tylenol Extra Strength] 2 tab PO PRN PRN 01/17/23 Aripiprazole [Abilify] 2 mg PO DAILY 01/17/23 Venlafaxine HCl [Effexor XR] 150 mg PO DAILY 01/17/23 Alendronate Sodium 35 mg PO EVERY 7TH DAY 12/07/24 Gabapentin 300 mg PO PRN PRN 12/07/24 Metformin HCl [Glucophage*] 500 mg PO BID 12/07/24 Phentermine HCl [Adipex-P] 37.5 mg PO DAILY 12/07/24 Topiramate [Topamax*] 100 mg PO DAILY 12/07/24 Amox/Clavulanate [Augmentin 875-125 Tab] 1 tab PO BID 5 Days #10 tab 12/10/24 - Past Medical/Surgical History Diabetic: No -: Depression -: ALTAGRACIA -: DVT -: morbid obese -: RA vs OA - Family History Father Notes: healthy - Social History Smoking Status: Unknown if ever smoked Alcohol use: Yes CD- Drugs: No Caffeine use: Yes Place of Residence: Home Physical Examination Temp Pulse Resp BP Pulse Ox 98.3 F 80 16 108/72 96 12/10/24 08:00 12/10/24 08:00 12/10/24 08:00 12/10/24 08:00 12/10/24 08:00 General: Alert, Oriented x3 HEENT: Atraumatic Respiratory: Normal air movement Gastrointestinal: Tenderness - Problems (1) Postmenopausal bleeding Status: Acute Conclusions/Impression: discussed w/pt need to eval lining of 8 mm schedule hysto d/c in office once discharge risks to include bleeding, infection, uterine perforation bring rail car driver Understands to schedule in office eval and f/u after discharge
== END 2024-12-10 11:38 | disposition home or self-care (01) | DRG 683 ==
LOC: ER 15:36 → ERHOLD 20:47 → 2ND 12-07 00:09
PROVIDERS: ADMIT Family Medicine; ATTEND Hospitalist
DX: N17.9 Acute kidney failure, unspecified (principal); E87.20 Acidosis, unspecified; Z68.42 Body mass index [BMI] 45.0-49.9, adult; E66.01 Morbid (severe) obesity due to excess calories; E87.6 Hypokalemia; F41.9 Anxiety disorder, unspecified; F32.A Depression, unspecified; K59.00 Constipation, unspecified; E78.5 Hyperlipidemia, unspecified; E86.0 Dehydration; N95.0 Postmenopausal bleeding; M19.90 Unspecified osteoarthritis, unspecified site; I12.9 Hypertensive chronic kidney disease with stage 1 through stage 4 chronic kidney disease, or unspecified chronic kidney disease; N18.9 Chronic kidney disease, unspecified; E11.22 Type 2 diabetes mellitus with diabetic chronic kidney disease; D72.829 Elevated white blood cell count, unspecified; R31.29 Other microscopic hematuria; Z79.899 Other long term (current) drug therapy; Z86.718 Personal history of other venous thrombosis and embolism
CPT/HCPCS: 36415; 70450; 74176; 76770; 76830; 80048; 80053; 81001; 82550; 83605; 83690; 83735; 83970; 84550; 85014; 85018; 85025; 85610; 85730; 86140; 87040; 87045; 87046; 87177; 87209; 87324; 87425; 89055; 93005; 96361; 96374; 99285; J1650; J2543; J7030

== ENCOUNTER 2025-06-09 14:57 | Emergency (ER) | payer MEDICARE ==
[2025-06-09] MEDS ORDERED: MECLIZINE HCL 12.5 MG TAB ONE (16:21)
[2025-06-09 16:26] LABS: Absolute Lymphocytes (CBC) 1.5 K/uL (0.7-4.9); Hematocrit 39.7 % (36.0-45.0); Hemoglobin 13.4 g/dL (12.0-15.0); MCH 31.3 pg (27.0-35.0); MCHC 33.7 g/dL (32.0-36.0); MCV 92.9 fL (80-100); MPV 6.8 fL (7.6-11.3); Nucleated RBC Absolute Count 0.0 (0-0); Nucleated Red Blood Cells % 0.0 % (0-0); RBC Red Blood Cell Count 4.28 M/uL (3.86-4.86); White Blood Count 11.70 thou/uL (4.3-10.9)
--- NOTE | 2025-06-09 16:34 | RAD REPORT ---
EXAM: Chest Single View HISTORY: 60 years Female dizzines COMPARISON: No prior exams FINDINGS: LUNGS/PLEURA: The lungs are clear. No pleural effusions or pneumothorax. No pulmonary edema. CARDIAC/MEDIASTINUM: The cardiac silhouette is within normal limits. UPPER ABDOMEN: No significant abnormality. BONES: No acute abnormality. LINES/TUBES/OTHER: N/A IMPRESSION: No evidence of acute cardiopulmonary disease.
[2025-06-09] MEDS ORDERED: PROMETHAZINE INJ 25 MG/ML AMP ONE (16:36)
[2025-06-09 16:46] LABS: Anion Gap 9.4 mEq/L (5.0-15.0); BUN Blood Urea Nitrogen 21 mg/dL (7-18); Glucose Level 125 mg/dL (74-106); Potassium 4.4 mEq/L (3.5-5.1); Troponin High Sensitivity < 3.0 pg/mL (<58.9)
--- NOTE | 2025-06-09 18:19 | ER ---
Nurse's Notes [facility] Name: Zayra Youssef Age: 60 yrs Sex: Female : 1965 Arrival Date: 06/09/2025 Time: 14:57 Bed 6 Private MD: Diagnosis: Benign paroxysmal vertigo, left ear Presentation: 06/09 15:21 Chief complaint: Patient states: dizziness, vomiting and nausea that started at 1145 dd2 am. pt presented to er diaphoretic and vomiting. Coronavirus screen: At this time, the client does not indicate any symptoms associated with coronavirus-19. Ebola Screen: No symptoms or risks identified at this time. Initial Sepsis Screen: Does the patient meet any 2 criteria? No. Patient's initial sepsis screen is negative. Does the patient have a suspected source of infection? No. Patient's initial sepsis screen is negative. Risk Assessment: Do you want to hurt yourself or someone else? Patient reports no desire to harm self or others. Onset of symptoms was June 09, 2025 at 11:45. 15:21 Method Of Arrival: Ambulatory dd2 15:21 Acuity: TESHA 3 dd2 Triage Assessment: 15:22 General: Appears in no apparent distress. uncomfortable, Behavior is calm, cooperative, dd2 appropriate for age. Pain: Denies pain. Neuro: Level of Consciousness is awake, alert, obeys commands, Oriented to person, place, time, situation, Appropriate for age Reports dizziness, since 1145 am. GI: Reports nausea, vomiting. Historical: - Allergies: 15:22 No Known Allergies; dd2 - PMHx: 15:22 Anxiety; depressive disorder; diabetes mellitus; Hypertensive disorder; dd2 - PSHx: 15:22 None; dd2 - Immunization history:: Adult Immunizations unknown. - Infectious Disease History:: Denies. - Social history:: Smoking status: Patient denies any tobacco usage or history of. Screenin:19 [facility] ED Fall Risk Assessment (Adult) History of falling in the last 3 months, iw including since admission No falls in past 3 months (0 pts) Confusion or Disorientation No (0 pts) Intoxicated or Sedated No (0 pts) Impaired Gait No (0 pts) Mobility Assist Device Used No (0 pt) Altered Elimination No (0 pt) Score/Fall Risk Level 0 - 2 = Low Risk Oriented to surroundings, Maintained a safe environment. Abuse screen: Denies threats or abuse. Denies injuries from another. Nutritional screening: No deficits noted. Tuberculosis screening: No symptoms or risk factors identified. Assessment: 17:42 Reassessment: Patient appears in no apparent distress at this time. Patient and/or iw family updated on plan of care and expected duration. Pain level reassessed. Patient is alert, oriented x 3, equal unlabored respirations, skin warm/dry/pink. 18:45 Reassessment: Patient appears in no apparent distress at this time. Patient states iw feeling better. Patient states symptoms have improved. Vital Signs: 15:21 BP 122 / 77; Pulse 79; Resp 17; Temp 97.1; Pulse Ox 95% ; Pain 0/10; dd2 19:17 BP 117 / 74; Pulse 70; Resp 18; Pulse Ox 96% on R/A; al5 15:21 Pain Scale: Adult dd2 ED Course: 15:01 Patient arrived in ED. mr 15:01 Alfredito Arias DO is Attending Physician. ms3 15:22 Triage completed. dd2 15:22 Arm band placed on left wrist. dd2 16:03 Radha Parker, RN is Primary Nurse. iw 16:18 Initial lab(s) drawn, by me, sent to lab. Inserted saline lock: 20 gauge in right iw antecubital area, using aseptic technique. Blood collected. Flushed with 10 mL NS. 16:23 XRAY Chest (1 view) In Process Unspecified. EDMS 16:36 EKG done, by ED staff, reviewed by Alfredito Arias DO. dd2 17:42 Patient has correct armband on for positive identification. Bed in low position. Client iw placed on continuous cardiac and pulse oximetry monitoring. NIBP monitoring applied. 18:17 Nick Pedesron MD is Referral Physician. ms3 19:19 Provided Education on: discharge follow up, medications. al5 19:19 No provider procedures requiring assistance completed. IV discontinued, intact, al5 bleeding controlled, No redness/swelling at site. Pressure dressing applied. Administered Medications: 16:43 Drug: Meclizine PO 50 mg PO once Route: PO; iw 19:18 Follow up: Response: No adverse reaction; Marked relief of symptoms al5 16:43 Drug: Promethazine IM 12.5 mg IM once Route: IM; Site: right ventrogluteal; iw 19:18 Follow up: Response: No adverse reaction; Nausea is decreased al5 Medication: 16:19 VIS not applicable for this client. iw Outcome: 18:18 Discharge ordered by . ms3 19:19 Discharged to home ambulatory, with family, al5 19:19 Condition: good 19:19 Discharge instructions given to patient, Instructed on discharge instructions, follow up and referral plans. medication usage, Demonstrated understanding of instructions, follow-up care, medications, Prescriptions given X 2, 19:19 Patient left the ED. al5 Signatures: Dispatcher [employer] EDMS Tiffany Roman, Reg Reg mr Radha Parker, RN RN iw Alfredito Arias, DO ms3 Andree Pham RN RN al5 DAVIDSON ASTORGA RN RN dd2
--- NOTE | 2025-06-09 18:19 | EDPHYS ---
Physician Documentation [facility] Name: Zayra Youssef Age: 60 yrs Sex: Female : 1965 Arrival Date: 06/09/2025 Time: 14:57 Bed 6 Private MD: ED Physician Alfredito Arias HPI: 06/09 15:56 This 60 yrs old Female presents to ER via Ambulatory with complaints of Vomiting. ms3 15:56 60-year-old female past medical history of anxiety, depression, diabetes, hypertension ms3 presents to the emergency department for nausea, vomiting that began at 11:45 AM. Patient denies pain, shortness of breath. Patient endorses chills and dizziness that began at that time.. Historical: - Allergies: 15:22 No Known Allergies; dd2 - PMHx: 15:22 Anxiety; depressive disorder; diabetes mellitus; Hypertensive disorder; dd2 - PSHx: 15:22 None; dd2 - Immunization history:: Adult Immunizations unknown. - Infectious Disease History:: Denies. - Social history:: Smoking status: Patient denies any tobacco usage or history of. ROS: 15:56 Constitutional: Negative for fever, and chills. Cardiovascular: Negative for chest ms3 pain, and palpitations. Respiratory: Negative for shortness of breath, cough, wheezing, and pleuritic chest pain, 15:56 MS/Extremity: Negative for injury and deformity, Skin: Negative for injury, rash, and discoloration, 15:56 Abdomen/GI: Positive for nausea and vomiting, 15:56 Neuro: Positive for dizziness, Exam: 15:56 Constitutional: This is a well developed, well nourished patient who is awake, alert, ms3 and in no acute distress. Cardiovascular: Regular rate and rhythm with a normal S1 and S2. No gallops, murmurs, or rubs. Normal PMI, no JVD. No pulse deficits. Respiratory: Lungs have equal breath sounds bilaterally, clear to auscultation and percussion. No rales, rhonchi or wheezes noted. No increased work of breathing, no retractions or nasal flaring. Abdomen/GI: Soft, non-tender, with normal bowel sounds. No distension or tympany. No guarding or rebound. No evidence of tenderness throughout. Skin: Warm, dry with normal turgor. Normal color with no rashes, no lesions, and no evidence of cellulitis. MS/ Extremity: Pulses equal, no cyanosis. Neurovascular intact. Full, normal range of motion. 15:56 Neuro: Orientation: is normal, to person, place, time \T\ situation. Mentation: is normal, Memory: is normal, Cranial nerves: CN I not tested, CN II- XII are normal as tested, Cerebellar function: is grossly normal, normal finger to nose testing, Motor: is normal, Sensation: is normal, 15:58 ECG was reviewed by the Attending Physician. ms3 Vital Signs: 15:21 BP 122 / 77; Pulse 79; Resp 17; Temp 97.1; Pulse Ox 95% ; Pain 0/10; dd2 19:17 BP 117 / 74; Pulse 70; Resp 18; Pulse Ox 96% on R/A; al5 15:21 Pain Scale: Adult dd2 MDM: 15:15 Medical Screening Exam initiated ms3 15:56 Differential diagnosis: BPPV versus electrolyte abnormality versus AL. ms3 19:47 Data reviewed: vital signs, nurses notes, lab test result(s), EKG, radiologic studies, ms3 and as a result, I will discharge patient. I considered the following discharge prescriptions or medication management in the emergency department Medications were administered in the Emergency Department. See MAR. Independent interpretation of the following test(s) in the Emergency Department EKG: See my EKG interpretation above. Counseling: I had a detailed discussion with the patient and/or guardian regarding the historical points, exam findings, and any diagnostic results supporting the discharge/admit diagnosis, lab results, radiology results, the need for outpatient follow up, to return to the emergency department if symptoms worsen or persist or if there are any questions or concerns that arise at home. Response to treatment: the patient's symptoms have markedly improved after treatment, and as a result, I will discharge patient. ED course: Discussed labs, EKG, chest x-ray with the patient and her . On reevaluation patient's symptoms are improved, patient is alert and oriented x 4, no apparent distress, nontoxic-appearing, speaking full sentences, ambulatory in the emergency department without difficulty. Patient to follow-up with Dr. Pederson in 2 to 3 days. Patient understands agrees with plan. All questions were answered. Return precautions discussed include worsening symptoms, dizziness, numbness, weakness, or any other concerns.. 06/09 15:16 Order name: Basic Metabolic Panel; Complete Time: 16:47 ms3 06/09 15:16 Order name: CBC with Diff; Complete Time: 16:39 ms3 06/09 15:16 Order name: Troponin HS; Complete Time: 16:47 ms3 06/09 16:28 Order name: Glucose, Ancillary Testing; Complete Time: 16:39 EDMS 06/09 15:16 Order name: XRAY Chest (1 view); Complete Time: 16:39 ms3 06/09 15:16 Order name: EKG; Complete Time: 15:16 ms3 06/09 15:07 Order name: Cardiac monitoring; Complete Time: 16:19 ms3 06/09 15:07 Order name: EKG - Nurse/Tech; Complete Time: 16:19 ms3 06/09 15:07 Order name: IV Saline Lock; Complete Time: 16:19 ms3 06/09 15:07 Order name: Labs collected and sent; Complete Time: 16:19 ms3 06/09 15:07 Order name: NPO; Complete Time: 16:19 ms3 06/09 15:07 Order name: O2 Per Protocol; Complete Time: 16:19 ms3 06/09 15:07 Order name: O2 Sat Monitoring; Complete Time: 16:19 ms3 EC:58 Rate is 73 beats/min. Rhythm is regular. QRS [place] is Normal. NV interval is normal. QRS ms3 interval is normal. Clinical impression: Normal ECG. Interpreted by me. Reviewed by me. Administered Medications: 16:43 Drug: Meclizine PO 50 mg PO once Route: PO; iw 19:18 Follow up: Response: No adverse reaction; Marked relief of symptoms al5 16:43 Drug: Promethazine IM 12.5 mg IM once Route: IM; Site: right ventrogluteal; iw 19:18 Follow up: Response: No adverse reaction; Nausea is decreased al5 Disposition Summary: 06/09/25 18:18 Discharge Ordered Notes: Location: Home ms3 Condition: Stable ms3 Diagnosis - Benign paroxysmal vertigo, left ear ms3 Followup: ms3 - With: Nick Pederson MD - When: 1 - 2 days - Reason: Recheck today's complaints Discharge Instructions: - Discharge Summary Sheet ms3 - Benign Positional Vertigo ms3 - How to Perform the Danyell Maneuver ms3 Forms: - Medication Reconciliation Form ms3 - Antibiotic Education ms3 - Prescription Opioid Use ms3 - Patient Portal Instructions ms3 - Leadership Thank You Letter ms3 Prescriptions: - ondansetron 4 mg Oral Tablet,disintegrating - take 1 tablet ORAL route every 8 hours as needed for nausea and vomiting; 15 ms3 tablet; Refills: 0, Product Selection Permitted - Meclizine 25 mg Oral Tablet - take 1 tablet ORAL route every 8 hours As needed; 30 tablet; Refills: 0, ms3 Product Selection Permitted Signatures: Dispatcher [employer] EDMS Radha Parker, RN RN iw Alfredito Arias, DO DO ms3 DAVIDSON ASTORGA RN RN dd2 Andree Pham RN al5 Corrections: (The following items were deleted from the chart) 15:08 15:08 Chest Single View+RAD.RAD.BRZ ordered. EDMS EDMS 15:11 15:08 BASIC METABOLIC PANEL+C.LAB.BRZ ordered. EDMS EDMS 15:11 15:08 CBC+H.LAB.BRZ ordered. EDMS EDMS 15:11 15:08 HEPATIC FUNCTION+C.LAB.BRZ ordered. EDMS EDMS 15:11 15:08 MAGNESIUM+C.LAB.BRZ ordered. EDMS EDMS 15:11 15:08 PROTIME (+INR)+COAG.LAB.BRZ ordered. EDMS EDMS 15:11 15:08 PTT, ACTIVATED+COAG.LAB.BRZ ordered. EDMS EDMS 15:11 15:08 Troponin High Sensitivity+C.LAB.BRZ ordered. EDMS EDMS
[2025-06-09 19:46] VITALS: BP 122/77; TEMP 97.1; O2SAT 95
== END 2025-06-09 19:19 | disposition home or self-care (01) ==
LOC: ER 14:57
DX: H81.12 Benign paroxysmal vertigo, left ear (principal)
CPT/HCPCS: 93005; 85025; 80048; 36415; 82947; 84484; 71045; 96372; 99284; J2550; J8597